=== PATIENT | male | born 1960 | race Caucasian/White ===

== ENCOUNTER 2023-09-18 23:34 | Emergency (ER) | payer OTHER ==
[~2023-09-18] VITALS: Ht 172.7 cm; Wt 82.0 kg
[2023-09-18 23:40] VITALS: O2SAT 98
[2023-09-19 00:44] VITALS: TEMP 98.3
[2023-09-19] MEDS: ONDANSETRON HCL 4MG/2ML INJ IV ONE (00:51)
[2023-09-19] MEDS: MECLIZINE 25MG TABLET PO ONE (00:52)
[2023-09-19 01:20] LABS: BASOPHILS % 0.1 % (0.0-2.0); EOSINOPHILS % 0.6 % (0.0-5.0); HEMATOCRIT. 38.2 % (42.0-52.0); HEMOGLOBIN. 13.1 g/dL (14.0-18.0); LYMPHOCYTES % 9.4 % (20.0-50.0); MEAN CORPUSCULAR HEMOGLOBIN 30.2 pg (28.0-32.0); MEAN CORPUSCULAR HGB CONC 34.4 g/dL (31.0-37.0); MEAN CORPUSCULAR VOLUME 87.8 fL (80.0-94.0); MEAN PLATELET VOLUME 8.7 fl (7.4-10.4); MONOCYTES % 5.1 % (2.0-8.0); NEUTROPHILS % 84.8 % (40.0-76.0); PLATELET 189 x1000/uL (130-400); RED BLOOD CELL COUNT 4.35 mill/uL (4.7-6.1); RED CELL DISTRIBUTION WIDTH 12.9 % (11.6-14.6); WHITE BLOOD COUNT 9.5 x1000/uL (4.5-11.0)
[2023-09-19 01:31] LABS: CHLORIDE 106 mEq/L (98-107); POTASSIUM 3.7 mEq/L (3.5-5.1); SODIUM 141 mEq/L (136-145)
[2023-09-19 01:32] LABS: CALCIUM 9.6 mg/dL (8.7-10.4); CARBON DIOXIDE 27 mEq/L (21-32)
[2023-09-19 01:37] LABS: CREATININE 0.8 mg/dL (0.6-1.3); GLUCOSE 156 mg/dL (70-105); UREA NITROGEN BLOOD 15 mg/dL (9-23)
[2023-09-19 01:41] LABS: ETHANOL BLOOD < 10 mg/dL (<10); TROPONIN I HIGH SENSITIVITY < 4 ng/L (3.0-53)
[2023-09-19] MEDS ORDERED: ACET-2708 MT (02:46)
[2023-09-19] MEDS ORDERED: ONDA4TAB50 MT (02:46)
[2023-09-19] MEDS ORDERED: MECL-299 MT (02:46)
[2023-09-19 03:00] VITALS: BP 115/72; PULSE 57; RESP 11
== END 2023-09-19 03:07 | disposition home or self-care (01) ==
LOC: ER 23:34
DX: R42 Dizziness and giddiness (principal); R11.2 Nausea with vomiting, unspecified
CPT/HCPCS: 36415; 71045; 93005; 99285; 80048; 80320; 83880; 83735; 84100; 85025; 84484; 70450; 96374; J8597; J2405; G0480